=== PATIENT | male | born 2000 | race Caucasian/White ===

== ENCOUNTER 2024-03-12 14:14 | Emergency (ER) | payer OTHER ==
[~2024-03-12] VITALS: Ht 182.9 cm; Wt 63.5 kg
[~2024-03-12 14:14] MED LIST: ALBU90OI61 INH; BUDE6HFA
[2024-03-12 14:55] VITALS: BP 146/95
[2024-03-12] MEDS ORDERED: HYDR1TAB94 PO (14:57)
[2024-03-12] MEDS ORDERED: Amoxicillin500 MG PO (14:58)
== END 2024-03-12 14:58 | disposition home or self-care (01) ==
LOC: ER 14:14
DX: K04.7 Periapical abscess without sinus (principal); Z79.2 Long term (current) use of antibiotics; Z79.899 Other long term (current) drug therapy
CPT/HCPCS: 99282

== ENCOUNTER 2024-05-10 20:01 | Emergency (ER) | payer OTHER ==
[~2024-05-10] VITALS: Ht 188 cm; Wt 76.2 kg
[~2024-05-10 20:01] MED LIST changes: +Amoxicillin500 MG PO; +HYDR1TAB94 PO
[2024-05-10 20:17] VITALS: BP 139/65
[2024-05-10 20:37] LABS: BASOPHILS ABSOLUTE AUTO 0.07 K/mm3 (0.00-0.23); BASOPHILS PERCENT AUTO 1 % (0-2); EOSINOPHILS ABSOLUTE AUTO 0.17 K/mm3 (0.00-0.68); EOSINOPHILS PERCENT AUTO 2 % (0-6); Hematocrit 44.4 % (37.0-53.0); Hemoglobin 15.4 g/dL (13.5-17.5); IMMATURE GRAN ABSOLUTE AUTO 0.01 K/mm3 (0.00-0.10); IMMATURE GRAN PERCENT AUTO 0 % (0-1); LYMPHOCYTES ABSOLUTE AUTO 2.47 K/mm3 (0.84-5.20); LYMPHOCYTES PERCENT AUTO 30 % (21-46); MONOCYTES ABSOLUTE AUTO 0.57 K/mm3 (0.16-1.47); MONOCYTES PERCENT AUTO 7 % (4-13); Mean Corpuscular HGB 29.5 pg (26.0-34.0); Mean Corpuscular HGB Conc 34.7 g/dL (31.5-36.5); Mean Corpuscular Volume 85 fL (80-100); Mean Platelet Volume 12.3 fL (9.1-12.4); NEUTROPHILS ABSOLUTE AUTO 4.88 K/mm3 (1.96-9.15); NEUTROPHILS PERCENT AUTO 60 % (41-73); Platelet Count 173 K/mm3 (150-400); RDW Coefficient Variation 11.9 % (11.7-14.2); RDW Standard Deviation 36.6 fL (35.1-46.3); Red Blood Cell Count 5.22 M/mm3 (4.30-5.90); White Blood Cell Count 8.17 K/mm3 (4.00-11.30)
[2024-05-10 20:59] LABS: Albumin, Blood 4.5 g/dL (3.4-5.0); Albumin/Globulin Ratio 1.4 (0.8-1.8); Bilirubin, Total 1.2 mg/dL (0.1-1.0); Bun/Creatinine Ratio 14.2 (12.0-20.0); Calcium, Blood 9.6 mg/dL (8.5-10.1); Creatinine, Blood 0.92 mg/dL (0.60-1.20); Globulin, Blood 3.3 g/dL (2.2-4.0); Potassium, Blood 4.8 mmol/L (3.5-5.5); Total Protein, Blood 7.8 g/dL (6.4-8.2)
[2024-05-10] MEDS ORDERED: QUET100 PO (23:19)
== END 2024-05-10 23:19 | disposition home or self-care (01) ==
LOC: ER 20:01
PROVIDERS: Student in an Organized Health Care Education/Training Program
DX: R40.0 Somnolence (principal); R11.2 Nausea with vomiting, unspecified; T43.595A Adverse effect of other antipsychotics and neuroleptics, initial encounter; F12.90 Cannabis use, unspecified, uncomplicated; J45.909 Unspecified asthma, uncomplicated; Z88.8 Allergy status to other drugs, medicaments and biological substances; Z79.51 Long term (current) use of inhaled steroids; Z79.899 Other long term (current) drug therapy; Z59.89 Other problems related to housing and economic circumstances
CPT/HCPCS: 80053; 85025; 99283

== ENCOUNTER 2024-06-29 19:33 | Emergency (ER) | payer OTHER ==
[~2024-06-29] VITALS: Ht 188 cm; Wt 79.4 kg
[~2024-06-29 19:33] MED LIST changes: +QUET100 PO
[2024-06-29 20:10] VITALS: BP 140/87
[2024-06-29] MEDS ORDERED: Amoxicillin/Clavulanate K 875 MG Tab PO ONE (21:00)
[2024-06-29] MEDS ORDERED: OxyCODONE HCL 5 MG TAB PO ONE (21:00)
[2024-06-29] MEDS ORDERED: Ketorolac Tromethamine 15mg Vial IM ONE (21:00)
[2024-06-29] MEDS ORDERED: AMOCLA875 PO (21:20)
[2024-06-29] MEDS ORDERED: RX Prepack 6 Tabs Oxycodone 5mg UD ONE (21:25)
== END 2024-06-29 21:37 | disposition home or self-care (01) ==
LOC: ER 19:33
DX: K08.89 Other specified disorders of teeth and supporting structures (principal); J45.909 Unspecified asthma, uncomplicated; Z88.8 Allergy status to other drugs, medicaments and biological substances; Z79.899 Other long term (current) drug therapy
CPT/HCPCS: 96372; 99282-25; A9270; J1885

== ENCOUNTER → 2024-07-11 | Outpatient (CLI) | payer OTHER ==
[~2024-07-11] MED LIST changes: +AMOCLA875 PO
[2024-07-13 12:41] LABS: Stool Occult Bld Immuno 1 Negative (NEGATIVE)
== END | disposition home or self-care (01) ==
LOC: LAB 14:00 → LAB SHORT 14:00
PROVIDERS: Nurse Practitioner Family
DX: Z12.11 Encounter for screening for malignant neoplasm of colon (principal)
CPT/HCPCS: G0328

== ENCOUNTER 2025-03-19 19:26 | Emergency (ER) | payer OTHER ==
[~2025-03-19] VITALS: Ht 188 cm; Wt 69.0 kg
[2025-03-19 20:37] VITALS: BP 112/80
[2025-03-19] MEDS ORDERED: RX Prepack 6 Tabs Oxycodone 5mg UD ONE (20:40)
[2025-03-19] MEDS ORDERED: AMOCLA875 PO ×2 (20:43→20:49)
[2025-03-19] MEDS ORDERED: NARCAN4 M1 ×2 (20:43→20:49)
== END 2025-03-19 20:51 | disposition home or self-care (01) ==
LOC: ER 19:26
DX: K04.7 Periapical abscess without sinus (principal); J45.909 Unspecified asthma, uncomplicated; F17.200 Nicotine dependence, unspecified, uncomplicated; Z79.899 Other long term (current) drug therapy; Z88.8 Allergy status to other drugs, medicaments and biological substances
CPT/HCPCS: 99282; A9270